=== PATIENT | male | born 1980 | race Caucasian/White ===

== ENCOUNTER 2017-03-28 11:32 | Emergency (ER) | payer BC, SELFPAY ==
[2017-03-28 11:54] VITALS: BP 139/88; PULSE 95; RESP 20; TEMP 37.4; O2SAT 96; BMI 33.9
--- NOTE | 2017-03-28 11:57 | HMH.EDUTC ---
[facility] [place] Disposition Clinical Impression: URI (upper respiratory infection) Qualifiers: URI type: unspecified URI Qualified Code(s): J06.9 - Acute upper respiratory infection, unspecified Disposition: Home, Self-Care Condition on Discharge: Good Instructions: Cough, Sinusitis (Alternative Therapy), DI for Sinusitis, DI for Cough -- Adult Additional Instructions: * Monitor Temp. Tylenol and/or Ibuprofen as needed. ER if fever is no less than 101 despite alternating Tylenol and Ibuprofen * Encourage fluids, water, Gatorade, powerade, pedialyte if /toddler/or child * Warm salt water gargles for throat irritation *Warm fluids *Sore throat lozenges *Sleep elevated *humidifier or vaporizer Lots of rest Increase fluids, water, Gatorade, powerade Follow up IMMEDIATELY for new or worsening of symptoms OR no noticeable improvement over the next 48-72 hours. 911 immediately for any life threatening symptoms such as chest pain or difficulty breathing Prescriptions: Azithromycin [Z-Craig 250mg Tab] 250 mg PO UD DOSE PK #6 tab predniSONE [Prednisone 20mg Tab] 20 mg PO BID #10 tab Promethazine/Dextromethorphan [Promethazine-Dm Syrup] 10 ml PO Q4H PRN #200 syrup PRN Reason: Cough Time of Disposition: 12:10 Medical Decision Making Vital Signs: 03/28/17 11:54 Temperature 99.3 F Temperature Source Temporal Artery Scan Pulse Rate [Brachial] 95 H Respiratory Rate 20 Blood Pressure [Left Arm] 139/88 Blood Pressure Mean [Left Arm] 105 Blood Pressure Source [Left Arm] Automatic Cuff Blood Pressure Position [Left Arm] Sitting 02 Sat by Pulse Oximetry 96 Oxygen Delivery Method Room Air - Petr Inquiry Pt receiving controlled substance: No Petr was queried for this patient: No [facility] [place] HPI - General Stated complaint: cough Mode of Arrival: Ambulatory Source of Information: Patient Limitations: No Limitations Description of Symptoms (Recalled from Triage Doc. by RN): COUGH, CONGESTION AND FEVER HEENT Symptoms (Recalled from RN notes): Yes Resp Symptoms (Recalled from RN notes): Yes Skin Symptoms (Recalled from RN notes): No MS Symptoms (Recalled from RN notes): No Functional Status (Recalled from RN notes): NA - History of Present Illness Provider Complaint: Patient state that he began having a cough on Saturday State that yesterday he noticed that he felt like his sinuses was starting to stop up State that he feels like he may be having some sinus drainage. State that today he has been feeling like he may be running a low grade fever - Related Data Previous Rx's Medication Instructions Recorded Azithromycin [Z-Craig 250mg Tab] 250 mg PO UD DOSE PK #6 tab 03/28/17 Promethazine/Dextromethorphan 10 ml PO Q4H PRN #200 syrup 03/28/17 [Promethazine-Dm Syrup] predniSONE [Prednisone 20mg 20 mg PO BID #10 tab 03/28/17 Tab] Allergies Allergy/AdvReac Type Severity Reaction Status Date / Time No Known Allergies Allergy Verified 03/28/17 11:57 - Worker's Comp Is this a Worker's Comp case?: No [facility] History I have reviewed the patient's past medical history: Yes Medical History: Denies:: Cancer, Diabetes Mellitus Type 1, Diabetes Mellitus Type 2, MRSA Amputation: No - *Social History Smoking Status: Never smoker Alcohol Intake: never - Psychiatric History Expresses thoughts of harming self/others: None Suicide Plan Description: No Plan ROS Obtained: Yes All systems reviewed & no additional complaints - Constitutional Constitutional: Reports fever(s) - ENT Ears, Nose, Mouth, and Throat: Reports sinus pressure Physical Exam - General General appearance: alert, in no apparent distress - Expanded ENT Exam Nose exam: Present: sinus tenderness, other (tenderness noted in maxillary sinuses, reports thick yellowish mucous) - Respiratory Respiratory exam: Present: normal lung sounds bilaterally. Absent: respiratory distress - Cardiovascular Cardiovascular exam: Present: regular rate
--- NOTE | 2017-03-28 12:01 | ED_ITS ---
[facility] [place] Disposition Clinical Impression: URI (upper respiratory infection) Qualifiers: URI type: unspecified URI Qualified Code(s): J06.9 - Acute upper respiratory infection, unspecified Disposition: Home, Self-Care Condition on Discharge: Good Instructions: Cough, Sinusitis (Alternative Therapy), DI for Sinusitis, DI for Cough -- Adult Additional Instructions: * Monitor Temp. Tylenol and/or Ibuprofen as needed. ER if fever is no less than 101 despite alternating Tylenol and Ibuprofen * Encourage fluids, water, Gatorade, powerade, pedialyte if /toddler/or child * Warm salt water gargles for throat irritation *Warm fluids *Sore throat lozenges *Sleep elevated *humidifier or vaporizer Lots of rest Increase fluids, water, Gatorade, powerade Follow up IMMEDIATELY for new or worsening of symptoms OR no noticeable improvement over the next 48-72 hours. 911 immediately for any life threatening symptoms such as chest pain or difficulty breathing Prescriptions: Azithromycin [Z-Craig 250mg Tab] 250 mg PO UD DOSE PK #6 tab predniSONE [Prednisone 20mg Tab] 20 mg PO BID #10 tab Promethazine/Dextromethorphan [Promethazine-Dm Syrup] 10 ml PO Q4H PRN #200 syrup PRN Reason: Cough Time of Disposition: 12:10 Medical Decision Making Vital Signs: 03/28/17 11:54 Temperature 99.3 F Temperature Source Temporal Artery Scan Pulse Rate [Brachial] 95 H Respiratory Rate 20 Blood Pressure [Left Arm] 139/88 Blood Pressure Mean [Left Arm] 105 Blood Pressure Source [Left Arm] Automatic Cuff Blood Pressure Position [Left Arm] Sitting 02 Sat by Pulse Oximetry 96 Oxygen Delivery Method Room Air - Petr Inquiry Pt receiving controlled substance: No Petr was queried for this patient: No [facility] [place] HPI - General Stated complaint: cough Mode of Arrival: Ambulatory Source of Information: Patient Limitations: No Limitations Description of Symptoms (Recalled from Triage Doc. by RN): COUGH, CONGESTION AND FEVER HEENT Symptoms (Recalled from RN notes): Yes Resp Symptoms (Recalled from RN notes): Yes Skin Symptoms (Recalled from RN notes): No MS Symptoms (Recalled from RN notes): No Functional Status (Recalled from RN notes): NA - History of Present Illness Provider Complaint: Patient state that he began having a cough on Saturday State that yesterday he noticed that he felt like his sinuses was starting to stop up State that he feels like he may be having some sinus drainage. State that today he has been feeling like he may be running a low grade fever - Related Data Previous Rx's Medication Instructions Recorded Azithromycin [Z-Craig 250mg Tab] 250 mg PO UD DOSE PK #6 tab 03/28/17 Promethazine/Dextromethorphan 10 ml PO Q4H PRN #200 syrup 03/28/17 [Promethazine-Dm Syrup] predniSONE [Prednisone 20mg 20 mg PO BID #10 tab 03/28/17 Tab] Allergies Allergy/AdvReac Type Severity Reaction Status Date / Time No Known Allergies Allergy Verified 03/28/17 11:57 - Worker's Comp Is this a Worker's Comp case?: No [facility] History I have reviewed the patient's past medical history: Yes Medical History: Denies:: Cancer, Diabetes Mellitus Type 1, Diabetes Mellitus Type 2, MRSA Amputation: No - *Social History Smoking Status: Never smoker Alcohol Intake: never - Psychiatric History Expresses thoughts of harming self
[2017-03-28 12:09] LABS: UTC Influenza A Antigen Negative (Negative); UTC Influenza B Antigen Negative (Negative)
== END 2017-03-28 12:17 | disposition home or self-care (01) ==
PROVIDERS: Emergency Provider Nurse Practitioner
DX: J06.9 Acute upper respiratory infection, unspecified (principal)
CPT/HCPCS: 87804; 99202

== ENCOUNTER 2017-04-01 09:31 | Emergency (ER) | payer BC, SELFPAY ==
[2017-04-01 09:40] VITALS: BP 114/81; PULSE 102; RESP 20; TEMP 36.8; O2SAT 96; BMI 35.5
--- NOTE | 2017-04-01 09:45 | HMH.EDUTC ---
[facility] [place] Dis[place] Clinical Impression: Influenza Disposition: Home, Self-Care Condition on Discharge: Good Instructions: Influenza, DI for Fever (Symptom) -- Adult, Cough Additional Instructions: ? Start Tamiflu today if you are going to take it. Discussed risk and possible benefits. ? Lots of rest ? Increase Fluids water, Gatorade, powerade, pedialyte,if infant/toddler/child ? Alternate Tylenol and / or ibuprofen as discussed for fever, aches, chills x 24 hours without medication for symptoms ? Follow up IMMEDIATELY for new or worsening Symptoms OR no noticeable improvement over the next 48-72 hours, 911 for difficulty or breathing ? You or your child area contagious until no fever, aches, chills for 24 hours with medication for symptoms * Monitor Temp. Tylenol and/or Ibuprofen as needed. ER if fever is no less than 101 despite alternating Tylenol and Ibuprofen * Encourage fluids, water, Gatorade, powerade, pedialyte if /toddler/or child * Warm salt water gargles for throat irritation *Warm fluids *Sore throat lozenges *Sleep elevated *humidifier or vaporizer Lots of rest Increase fluids, water, Gatorade, powerade Follow up with family doctor Prescriptions: Brompheniramine/Pseudoephed/Dm [Bromfed DM Cough Syrup 5mL] 10 ml PO Q4H PRN #200 syrup PRN Reason: Cough Oseltamivir Phosphate [Tamiflu 75mg Capsule] 75 mg PO BID #10 capsule Forms: Work/School Release Time of Disposition: 10:04 Medical Decision Making - Medical Records Medical records reviewed: Yes: I reviewed the patient's medical records. Vital Signs: 04/01/17 09:40 Temperature 98.3 F Temperature Source Temporal Artery Scan Pulse Rate [Right Radial] 102 H Respiratory Rate 20 Blood Pressure [Right Arm] 114/81 Blood Pressure Mean [Right Arm] 92 Blood Pressure Source [Right Arm] Automatic Cuff Blood Pressure Position [Right Arm] Sitting 02 Sat by Pulse Oximetry 96 Oxygen Delivery Method Room Air Orders (Tests/Meds): ORDERS Category Date Time Status Chest XR 2 view (NOT portable) [XR chest 2V] Stat Exams 04/01/17 09:47 Ordered - Radiology Data #1 Image(s): Chest Image Reviewed: Yes I reviewed the patient's radiology image Preliminary Findings: No Infiltrates Seen - Petr Inquiry Pt receiving controlled substance: No Petr was queried for this patient: No [facility] [place] HPI - General Stated complaint: cough drainage wheezing Mode of Arrival: Family Vehicle Source of Information: Patient Limitations: No Limitations Description of Symptoms (Recalled from Triage Doc. by RN): LAST WEEK PT WAS SEEN FOR SINUS INFECTION WAS GIVEN Z-HUGO AND STEROIDS BUT IS STILL NOT BETTER. HEENT Symptoms (Recalled from RN notes): No Resp Symptoms (Recalled from RN notes): Yes (WHEEZING, COUGH) Skin Symptoms (Recalled from RN notes): No MS Symptoms (Recalled from RN notes): No Functional Status (Recalled from RN notes): NA - History of Present Illness Provider Complaint: Patient state that he was seen and treated last week and diagnosed with sinus infection and given a zpack and sterioids States that he has taken all his medication and he did get feeling better and now his symptoms return State that symptoms area worse State hta this throat is raw irritated and drainage States that last night he was wheezing a little bit and so he thought he better come in and get checked out again - Related Data Previous Rx's Medication Instructions Recorded Azithromycin [Z-Hugo 250mg Tab] 250 mg PO UD DOSE PK #6 tab 03/28/17 Promethazine/Dextromethorphan 10 ml PO Q4H PRN #200 syrup 03/28/17 [Promethazine-Dm Syrup] predniSONE [Prednisone 20mg 20 mg PO BID #10 tab 03/28/17 Tab] Brompheniramine/Pseudoephed/Dm 10 ml PO Q4H PRN #200 syrup 04/01/17 [Bromfed DM Cough Syrup 5mL] Oseltamivir Phosphate [Tamiflu 75 mg PO BID #10 cap 04/01/17 75mg Capsule] Allergies Allergy/AdvReac Type Severity Reaction Status Date / Time No Known Allergies Allerg
--- NOTE | 2017-04-01 09:47 | XR_ITS ---
XR chest 2V Ordering Physician: Becca Ochoa Patient Age: 36 years: Male HISTORY: ITS.REASON: cough congestion TECHNIQUE: PA and lateral chest were performed with no previous chest studies for comparison. The lungs appear slightly hyperexpanded on this study but with no focal pneumonia evident. Upper normal prominence of markings the medial left lung base but I believe these are within normal limits. No pneumothorax. No pleural effusion. Chest wall and T-spine appear intact. Heart is normal in size. The ana and mediastinal structures appear satisfactory.. IMPRESSION: Lungs clear with nothing definitely acute. No definitive or convincing focal pneumonia
--- NOTE | 2017-04-01 09:49 | ED_ITS ---
[facility] [place] Disposition Clinical Impression: Influenza Disposition: Home, Self-Care Condition on Discharge: Good Instructions: Influenza, DI for Fever (Symptom) -- Adult, Cough Additional Instructions: ? Start Tamiflu today if you are going to take it. Discussed risk and possible benefits. ? Lots of rest ? Increase Fluids water, Gatorade, powerade, pedialyte,if infant/toddler/child ? Alternate Tylenol and / or ibuprofen as discussed for fever, aches, chills x 24 hours without medication for symptoms ? Follow up IMMEDIATELY for new or worsening Symptoms OR no noticeable improvement over the next 48-72 hours, 911 for difficulty or breathing ? You or your child area contagious until no fever, aches, chills for 24 hours with medication for symptoms * Monitor Temp. Tylenol and/or Ibuprofen as needed. ER if fever is no less than 101 despite alternating Tylenol and Ibuprofen * Encourage fluids, water, Gatorade, powerade, pedialyte if /toddler/or child * Warm salt water gargles for throat irritation *Warm fluids *Sore throat lozenges *Sleep elevated *humidifier or vaporizer Lots of rest Increase fluids, water, Gatorade, powerade Follow up with family doctor Prescriptions: Brompheniramine/Pseudoephed/Dm [Bromfed DM Cough Syrup 5mL] 10 ml PO Q4H PRN # 200 syrup PRN Reason: Cough Oseltamivir Phosphate [Tamiflu 75mg Capsule] 75 mg PO BID #10 capsule Forms: Work/School Release Time of Disposition: 10:04 Medical Decision Making - Medical Records Medical records reviewed: Yes: I reviewed the patient's medical records. Vital Signs: 04/01/17 09:40 Temperature 98.3 F Temperature Source Temporal Artery Scan Pulse Rate [Right Radial] 102 H Respiratory Rate 20 Blood Pressure [Right Arm] 114/81 Blood Pressure Mean [Right Arm] 92 Blood Pressure Source [Right Arm] Automatic Cuff Blood Pressure Position [Right Arm] Sitting 02 Sat by Pulse Oximetry 96 Oxygen Delivery Method Room Air Orders (Tests/Meds): ORDERS Category Date Time Status Chest XR 2 view (NOT portable) [XR chest 2V] Stat Exams 04/01/17 09:47 Ordered - Radiology Data #1 Image(s): Chest Image Reviewed: Yes I reviewed the patient's radiology image Preliminary Findings: No Infiltrates Seen - Petr Inquiry Pt receiving controlled substance: No Petr was queried for this patient: No [facility] [place] HPI - General Stated complaint: cough drainage wheezing Mode of Arrival: Family Vehicle Source of Information: Patient Limitations: No Limitations Description of Symptoms (Recalled from Triage Doc. by RN): LAST WEEK PT WAS SEEN FOR SINUS INFECTION WAS GIVEN Z-HUGO AND STEROIDS BUT IS STILL NOT BETTER. HEENT Symptoms (Recalled from RN notes): No Resp Symptoms (Recalled from RN notes): Yes (WHEEZING, COUGH) Skin Symptoms (Recalled from RN notes): No MS Symptoms (Recalled from RN notes): No Functional Status (Recalled from RN notes): NA - History of Present Illness Provider Complaint: Patient state that he was seen and treated last week and diagnosed with sinus infection and given a zpack and sterioids States that he has taken all his medication and he did get feeling better and now his symptoms return State that symptoms area worse State hta this throat is raw irritated and drainage States that last night he was wheezing a little bit and so he thought he better come in and get checked out again - Related Data Previous Rx's
[2017-04-01 13:49] LABS: UTC Influenza A Antigen Negative (Negative); UTC Influenza B Antigen Negative (Negative)
== END 2017-04-01 10:08 | disposition home or self-care (01) ==
PROVIDERS: Emergency Provider Nurse Practitioner
DX: J11.1 Influenza due to unidentified influenza virus with other respiratory manifestations (principal)
CPT/HCPCS: 71046; 87804; 99203; 99281

== ENCOUNTER → 2018-09-22 12:27 | Outpatient (CLI) | payer BC, SELFPAY ==
--- NOTE | 2018-09-22 12:31 | XR_ITS ---
XR elbow RT min 3V HISTORY: Follow-up fracture ITS.REASON: rt radial head fx ORDERING PHYSICIAN: Juliet Hernandez MD PATIENT AGE: 38 years COMPARISON: 08/06/2018 FINDINGS: Nondisplaced radial head fracture once again noted. The fracture line is more dose being when compared to the previous exam. There is an associated avulsion fracture along the anterior aspect of the radial neck. There has been some improvement in the displaced fat pad inferiorly. IMPRESSION: Overall no significant change in the radial head and neck fracture nondisplaced
== END ==
PROVIDERS: Visit Provider Orthopaedic Surgery
DX: S52.124A Nondisplaced fracture of head of right radius, initial encounter for closed fracture (principal)
CPT/HCPCS: 73080

== ENCOUNTER → 2018-10-20 09:53 | Outpatient (CLI) | payer BC, SELFPAY ==
--- NOTE | 2018-10-20 10:02 | XR_ITS ---
XR elbow RT min 3V Ordering Physician: Juliet Hernandez MD Patient Age: 38 years: Male HISTORY: ITS.REASON: rt radial head fracture Follow-up radial head and neck fracture. TECHNIQUE: 3 views of right elbow COMPARISON : September 22, 2018 FINDINGS The fracture line radial head is less evident.-Fracture line less sharp suggesting some early healing.. There are some minor offset noted the margin this of the radial head at this fracture on today's images suggest is similar to slightly more pronounced than 08/06/2018 oblique view but I favor this is mainly be projectional. Warrants continued ongoing follow-up. . Again note the small chip fracture,, or small avulsed fracture fragment anteriorly to the radial neck.]. Slightly smaller which may reflect some resorption. The joint effusion less evident IMPRESSION: . Healing radial head fracture. Fracture line less sharp, less evident suggesting early healing. Very Minor offset at cortical margin of radial head fracture again seen.. Suspect today's view & projection slightly accentuates this feature
== END ==
PROVIDERS: Visit Provider Orthopaedic Surgery
DX: S52.123A Displaced fracture of head of unspecified radius, initial encounter for closed fracture (principal)
CPT/HCPCS: 73080

== ENCOUNTER → 2019-02-02 16:31 | Outpatient (CLI) | payer BC, SELFPAY ==
--- NOTE | 2019-02-02 | XR_ITS ---
PROCEDURE: XR CHEST 2V CLINICAL HISTORY: TB screening COMPARISON: CXR2V XR chest 2V from 04/01/2017 FINDINGS: The cardiomediastinal silhouette and pulmonary vascularity are within normal limits. The lungs are clear without infiltrates, suspicious nodules, or pleural effusions. No acute bony abnormalities. IMPRESSION: No acute finding. No evidence of active tuberculosis Dictated by: Ranjith Harman MD 02/02/2019 18:17 Electronically signed by Ranjith Harman MD in [place] 02/03/2019 11:30
[2019-02-02 17:31] LABS: Basophils # 0.1 K/mm3 (0-0.2); Basophils % 0.8 % (0.1-2.0); Eosinophils # 0.2 K/mm3 (0.0-0.4); Hematocrit 44.7 % (42.0-52.0); Hemoglobin 14.3 g/dL (14.1-18.0); Lymphocytes # 2.9 K/mm3 (0.7-4.5); Lymphocytes % 26.3 % (10-50); Mean Corpuscular HGB Conc 31.9 g/dL (31.8-35.4); Mean Corpuscular Hemoglobin 27.5 pg (27.0-31.2); Mean Platelet Volume 7.1 fl (7.4-10.4); Monocytes # 0.4 K/mm3 (0.1-1.0); Monocytes % 3.3 % (1.7-9.3); Neutrophils # 7.3 K/mm3 (1.8-7.8); Neutrophils % 67.6 % (37.0-80.0); Platelet Count 342 K/mm3 (142-424); Red Cell Distribution Width 14.2 % (11.5-17.5); White Blood Count 10.8 K/mm3 (4.8-10.8)
[2019-02-02 19:26] LABS: Blood Urea Nitrogen 12 mg/dL (7-18); Calcium 9.1 mg/dL (8.5-10.1); Carbon Dioxide 26 mmol/L (21.0-32.0); Chloride 101 mmol/L (98-107); Creatinine,Serum 1.09 mg/dL (0.70-1.30); Estimated Glomerular Filt Rate 75 ml/min (>60); GFR (African American) 91 ML/MIN (>60); Glucose 214 mg/dL (74-106); Sodium 138 mmol/L (136-145)
[2019-02-04 10:23] LABS: HSV 1 IgG, Type Spec 1.14 index (0.00-0.90); HSV 2 IgG, Type Spec <0.91 index (0.00-0.90); Rapid Plasma Reagin Ab Titer Non Reactive (NonRea<1:1); Toxoplasma gondii Ab,IgM,Qn <3.0 AU/mL (0.0-7.9)
[2019-02-05 06:11] LABS: Angiotensin Converting Enzyme 29 U/L (14-82); Treponema pallidum Ab (FTA-ABS Non Reactive (Non Reactive); Varicella Zoster IgG 809 index (Immune >165); Varicella-Zoster Ab, IgM <0.91 index (0.00-0.90)
[2019-02-05 11:21] LABS: CMV PCR Negative (Negative); QuantiFERON-TB Gold Plus Negative (Negative)
== END ==
PROVIDERS: Visit Provider Ophthalmology
DX: B58.01 Toxoplasma chorioretinitis (principal)
CPT/HCPCS: 36415; 71046; 80048; 82164; 85025; 86480; 86592; 86695; 86696; 86777; 86780; 86787; 86790; 87496

== ENCOUNTER 2020-04-29 09:17 | Emergency (ER) | payer OTHER, SELFPAY ==
[2020-04-29 09:26] VITALS: BP 156/88; PULSE 92; RESP 16; TEMP 36.9; O2SAT 96; BMI 33.6
[2020-04-29 09:43] VITALS: BP 156/88; PULSE 92; RESP 16; TEMP 36.9
--- NOTE | 2020-04-29 09:46 | HMH.EDUTC ---
[facility] [place] Disposition Clinical Impression: Encounter for laboratory testing for COVID-19 virus Disposition: Home, Self-Care Condition on Discharge: Good Instructions: DI for COVID-19 (Suspected or Confirmed ), Coronavirus Disease 2019, Preventing the Spread of Coronavirus Discharge Instructions Additional Instructions: *Monitor Temp, Over the counter Motrin or Tylenol as directed/as needed Tylenol every 4 hours and Motrin every 6 hours (as long as your family doctor has told you that you can take it) for fever or pain. and straight to ER if unable to lower temp less than 101.0 after medication given Follow up IMMEDIATELY for new or worsening symptoms or no Noticeable improvement over the next 48-72 hours. 911 for difficulty breathing or swallowing You were tested for today for COVID19 your test result should be back in the next 24-48 hours, you may call to the [facility] to see if your test results are back in the next 48 hours [phone] [facility] hours are 9am-9pm You was given a handout with instructions for Self Quarantine and Self isolation for while you wait on test results and what to do if they are positive If you are positive the Health Dept will be contacting you also Referrals: PCP,No [Primary Care Provider] - As needed Forms: Work/School Release Time of Disposition: 09:49 Medical Decision Making - Petr Inquiry Pt receiving controlled substance: No Petr was queried for this patient: No Vital Signs: 04/29/20 09:26 04/29/20 09:43 Temperature 98.4 F 98.4 F Temperature Source Oral Oral Pulse Rate 92 H Pulse Rate [Right] 92 H Respiratory Rate 16 16 Blood Pressure 156/88 H Blood Pressure [Right Arm] 156/88 H Blood Pressure Mean [Right Arm] 110 Blood Pressure Source [Right Arm] Automatic Cuff Blood Pressure Position [Right Arm] Sitting 02 Sat by Pulse Oximetry 96 Oxygen Delivery Method Room Air Orders (Tests/Meds): ORDERS Category Date Time Status Covid-19 Nasal PCR ([facility]) Routine Lab 04/29/20 09:23 Received [facility] [place] HPI - General Stated complaint: covid test Time Seen by Provider: 04/29/20 09:46 Mode of Arrival: Ambulatory Source of Information: Patient Limitations: No Limitations Description of Symptoms (Recalled from Triage Doc. by RN): pt is asymptomatic. however, he was directly exposed to his who is covid positive. HEENT Symptoms (Recalled from RN notes): No Resp Symptoms (Recalled from RN notes): No Skin Symptoms (Recalled from RN notes): No MS Symptoms (Recalled from RN notes): No Functional Status (Recalled from RN notes): na - History of Present Illness Provider Complaint: Patient state that his tested positive for COVID last week States that he has not been having any symptoms but his work wanted him to get tested before he can come back - Related Data Home Medications Medication Instructions Recorded Confirmed No Known Home Medications 09/22/18 10/20/18 Allergies Allergy/AdvReac Type Severity Reaction Status Date / Time No Known Allergies Allergy Verified 04/29/20 09:25 - Worker's Comp Is this a Worker's Comp case?: No [facility] History - Hepatitis A Screen Drug use history?: No High risk sexual behaviors?: No History of sexually transmitted infection?: No Currently employed?: No Childcare worker?: No Do you have indoor plumbing?: Yes Do you have electricity?: Yes Attestation statement:: This patient has been screened for Hepatitis A risk factors. I have reviewed the patient's past medical history: Yes Medical History: Denies:: Cancer, Diabetes Mellitus Type 1, Diabetes Mellitus Type 2, Hypertension, MRSA Other Surgeries: Yes: No Previous Surgery Amputation: No - Social History Smoking Status: Unknown if ever smoked Alcohol Intake: never Occupational Status: employed Housing: house Family Hx:: No significant family history ROS Obtained: Yes All systems reviewed & no additional complaints, Yes Systems reviewed as appropriate & no additi
== END 2020-04-29 09:54 | disposition home or self-care (01) ==
PROVIDERS: Emergency Provider Nurse Practitioner
DX: Z20.822 Contact with and (suspected) exposure to COVID-19 (principal)
CPT/HCPCS: 99202; G0463; U0003

== ENCOUNTER 2020-05-06 13:28 | Emergency (ER) | payer OTHER, SELFPAY ==
[2020-05-06 13:30] VITALS: BP 125/86; PULSE 97; RESP 18; TEMP 36.4; O2SAT 95; BMI 31.3
--- NOTE | 2020-05-06 13:59 | HMH.EDUTC ---
[facility] [place] Clinical Impression: Exposure to COVID-19 virus Disposition: Home, Self-Care Condition on Discharge: Good Instructions: Preventing the Spread of Coronavirus Discharge Instructions Referrals: PCP,Thu [Primary Care Provider] - Time of Disposition: 14:00 Medical Decision Making - Petr Inquiry Pt receiving controlled substance: No Vital Signs: 05/06/20 13:30 Temperature 97.6 F Temperature Source Oral Pulse Rate [Right Brachial] 97 H Respiratory Rate 18 Blood Pressure [Right Arm] 125/86 Blood Pressure Mean [Right Arm] 99 Blood Pressure Source [Right Arm] Automatic Cuff Blood Pressure Position [Right Arm] Sitting 02 Sat by Pulse Oximetry 95 Oxygen Delivery Method Room Air [facility] [place] - General Stated complaint: covid test Time Seen by Provider: 05/06/20 13:59 Mode of Arrival: Ambulatory Source of Information: Patient Limitations: No Limitations Description of Symptoms (Recalled from Triage Doc. by RN): PATIENT'S TESTED POSITIVE FOR COVID AND HE IS NEEDING A NEGATIVE TEST TO RETURN TO WORK. DENIES SYMPTOMS HEENT Symptoms (Recalled from RN notes): No Resp Symptoms (Recalled from RN notes): No Skin Symptoms (Recalled from RN notes): No MS Symptoms (Recalled from RN notes): No Functional Status (Recalled from RN notes): WNL - History of Present Illness Provider Complaint: Patient's testing positive for COVID 2/3. Needs negative test to return to work. Denies symptoms. Relieving factors: none Exacerbating factors: none Associated symptoms: denies other symptoms Treatments prior to arrival: none - Related Data Home Medications Medication Instructions Recorded Confirmed No Known Home Medications 09/22/18 10/20/18 Allergies Allergy/AdvReac Type Severity Reaction Status Date / Time No Known Allergies Allergy Verified 04/29/20 09:25 - Worker's Comp Is this a Worker's Comp case?: No [facility] History - Hepatitis A Screen Drug use history?: No High risk sexual behaviors?: No History of sexually transmitted infection?: No Currently employed?: No Childcare worker?: No Do you have indoor plumbing?: Yes Do you have electricity?: Yes Attestation statement:: This patient has been screened for Hepatitis A risk factors. I have reviewed the patient's past medical history: Yes Medical History: Denies:: Cancer, Diabetes Mellitus Type 1, Diabetes Mellitus Type 2, Hypertension, MRSA Other Surgeries: Yes: No Previous Surgery Amputation: No - Social History Smoking Status: Unknown if ever smoked Alcohol Intake: never Occupational Status: employed Housing: house Family Hx:: No significant family history ROS Obtained: Yes All systems reviewed & no additional complaints Physical Exam - General General appearance: alert, in no apparent distress - Head Head exam: normocephalic - Eye Eye exam: Present: PERRL - ENT ENT exam: Present: normal oropharynx - Respiratory Respiratory exam: Present: normal lung sounds bilaterally - Cardiovascular Cardiovascular exam: Present: regular rate, normal rhythm - Neurological Exam Neurological exam: Present: alert, oriented X3 - Psychiatric Psychiatric exam: Present: normal affect, normal mood - Skin Skin exam: Present: warm, dry, intact
[2020-05-06 14:03] VITALS: BP 125/86; PULSE 97; RESP 18; TEMP 36.4; O2SAT 95
== END 2020-05-06 14:06 | disposition home or self-care (01) ==
PROVIDERS: Emergency Provider Physician Assistant
DX: Z20.822 Contact with and (suspected) exposure to COVID-19 (principal)
CPT/HCPCS: 99202; G0463; U0003

== ENCOUNTER 2020-05-23 17:00 | Emergency (ER) | payer OTHER, SELFPAY ==
[2020-05-23 17:22] VITALS: BP 118/76; PULSE 81; RESP 17; TEMP 36.6; O2SAT 99; BMI 36.0
--- NOTE | 2020-05-23 17:27 | HMH.EDUTC ---
[facility] [place]ression: Exposure to COVID-19 virus Disposition: Home, Self-Care Condition on Discharge: Good Instructions: Preventing the Spread of Coronavirus Discharge Instructions Additional Instructions: Drink plenty of fluids. Take tylenol for pain or fever. Return if you begin to have difficulty breathing. Follow up with your regular doctor. GO TO THE ER FOR ANY WORSENING SYMPTOMS Referrals: PCP,No [Primary Care Provider] - Time of Disposition: 17:30 Medical Decision Making - Medical Records Medical records reviewed: No: I reviewed the patient's medical records. - Petr Inquiry Pt receiving controlled substance: No Vital Signs: 05/23/20 17:22 05/23/20 17:32 Temperature 97.8 F 98 F Temperature Source Tympanic Pulse Rate 86 Pulse Rate [Right] 81 Respiratory Rate 17 14 Blood Pressure 000/00 L Blood Pressure [Right Arm] 118/76 Blood Pressure Mean [Right Arm] 90 Blood Pressure Source [Right Arm] Automatic Cuff Blood Pressure Position [Right Arm] Sitting 02 Sat by Pulse Oximetry 99 Oxygen Delivery Method Room Air [facility] [place] - General Stated complaint: covid test Time Seen by Provider: 05/23/20 17:27 Mode of Arrival: Ambulatory Source of Information: Patient Limitations: No Limitations Description of Symptoms (Recalled from Triage Doc. by RN): PT NEEDS A COVID TEST FOR HIS CATARACT SURGERY ON SATURDAY. HEENT Symptoms (Recalled from RN notes): No Resp Symptoms (Recalled from RN notes): No Skin Symptoms (Recalled from RN notes): No MS Symptoms (Recalled from RN notes): No Functional Status (Recalled from RN notes): NA - History of Present Illness Provider Complaint: He has cataract surgery scheduled for later this week. He needs a covid test done before he can have the surgery. - Related Data Home Medications Medication Instructions Recorded Confirmed No Known Home Medications 09/22/18 10/20/18 Allergies Allergy/AdvReac Type Severity Reaction Status Date / Time No Known Allergies Allergy Verified 04/29/20 09:25 - Worker's Comp Is this a Worker's Comp case?: No [facility] History - Hepatitis A Screen Drug use history?: No High risk sexual behaviors?: No History of sexually transmitted infection?: No Currently employed?: No Childcare worker?: No Do you have indoor plumbing?: Yes Do you have electricity?: Yes Attestation statement:: This patient has been screened for Hepatitis A risk factors. I have reviewed the patient's past medical history: Yes Medical History: Denies:: Cancer, Diabetes Mellitus Type 1, Diabetes Mellitus Type 2, Hypertension, MRSA Other Surgeries: Yes: No Previous Surgery Amputation: No - Social History Smoking Status: Unknown if ever smoked Alcohol Intake: never Occupational Status: employed Housing: house Family Hx:: No significant family history ROS Obtained: Yes All systems reviewed & no additional complaints - Constitutional Constitutional: Reports system reviewed and no additional complaints, except as docu - Eyes Eyes: Reports system reviewed and no additional complaints, except as docu - ENT Ears, Nose, Mouth, and Throat: Reports system reviewed and no additional complaints, except as docu - Cardiovascular Cardiovascular: Reports system reviewed and no additional complaints, except as docu - Respiratory Respiratory: Reports system reviewed and no additional complaints, except as docu - Gastrointestinal Gastrointestingal: Reports: system reviewed and no additional complaints, except as docu Physical Exam - General General appearance: alert, in no apparent distress - Head Head exam: atraumatic, normocephalic, normal inspection - Eye Eye exam: Present: normal appearance, PERRL, EOMI - ENT ENT exam: Present: normal exam, normal oropharynx, mucous membranes moist, TM's normal bilaterally, normal external ear exam - Neck Neck exam: Present: normal inspection, full ROM, trachea mi
[2020-05-23 17:32] VITALS: BP 000/00; PULSE 86; RESP 14; TEMP 36.6
== END 2020-05-23 17:32 | disposition home or self-care (01) ==
PROVIDERS: Emergency Provider Nurse Practitioner Family
DX: Z11.52 Encounter for screening for COVID-19 (principal)
CPT/HCPCS: 99202; G0463; U0003

== ENCOUNTER 2020-07-19 15:39 | Emergency (ER) | payer OTHER, SELFPAY ==
[2020-07-19 16:25] VITALS: BP 136/82; PULSE 84; RESP 18; TEMP 36.9; O2SAT 98; BMI 32.8
--- NOTE | 2020-07-19 16:34 | HMH.EDUTC ---
[facility] [place]ression: Exposure to COVID-19 virus Disposition: Home, Self-Care Condition on Discharge: Good Instructions: Preventing the Spread of Coronavirus Discharge Instructions Additional Instructions: Drink plenty of fluids. Take tylenol for pain or fever. Return if you begin to have difficulty breathing. Follow up with your regular doctor. GO TO THE ER FOR ANY WORSENING SYMPTOMS Referrals: Provider,Referral, MD [Primary Care Provider] - Forms: Work/School Release Time of Disposition: 16:43 Medical Decision Making - Medical Records Medical records reviewed: No: I reviewed the patient's medical records. - Petr Inquiry Pt receiving controlled substance: No Vital Signs: 07/19/20 16:25 07/19/20 16:47 Temperature 98.4 F 98.4 F Temperature Source Oral Pulse Rate 84 Pulse Rate [Right Brachial] 84 Respiratory Rate 18 18 Blood Pressure 136/82 Blood Pressure [Right Arm] 136/82 Blood Pressure Mean [Right Arm] 100 Blood Pressure Source [Right Arm] Automatic Cuff Blood Pressure Position [Right Arm] Sitting 02 Sat by Pulse Oximetry 98 Oxygen Delivery Method Room Air [facility] [place] - General Stated complaint: COVID test Time Seen by Provider: 07/19/20 16:34 - History of Present Illness Provider Complaint: He states that he was exposed to covid last week. He denies any symptoms, but his employer wanted him to get tested. - Related Data Home Medications Medication Instructions Recorded Confirmed No Known Home Medications 09/22/18 10/20/18 Allergies Allergy/AdvReac Type Severity Reaction Status Date / Time No Known Allergies Allergy Verified 04/29/20 09:25 [facility] History - Hepatitis A Screen Attestation statement:: This patient has been screened for Hepatitis A risk factors. I have reviewed the patient's past medical history: Yes Medical History: Denies:: Cancer, Diabetes Mellitus Type 1, Diabetes Mellitus Type 2, Hypertension, MRSA Other Surgeries: Yes: No Previous Surgery Amputation: No - Social History Smoking Status: Unknown if ever smoked Alcohol Intake: never Occupational Status: employed Housing: house Family Hx:: No significant family history ROS Obtained: Yes All systems reviewed & no additional complaints - Constitutional Constitutional: Reports system reviewed and no additional complaints, except as docu - Eyes Eyes: Reports system reviewed and no additional complaints, except as docu - ENT Ears, Nose, Mouth, and Throat: Reports system reviewed and no additional complaints, except as docu - Cardiovascular Cardiovascular: Reports system reviewed and no additional complaints, except as docu - Respiratory Respiratory: Reports system reviewed and no additional complaints, except as docu Physical Exam - General General appearance: alert, in no apparent distress - Head Head exam: atraumatic, normocephalic, normal inspection - Eye Eye exam: Present: normal appearance, PERRL, EOMI - ENT ENT exam: Present: normal exam, normal oropharynx, mucous membranes moist, TM's normal bilaterally, normal external ear exam - Neck Neck exam: Present: normal inspection, full ROM, trachea midline. Absent: meningismus, lymphadenopathy - Chest Chest inspection: Present: normal inspection, symmetric chest wall rise. Absent: tenderness - Respiratory Respiratory exam: Present: normal lung sounds bilaterally. Absent: respiratory distress - Cardiovascular Cardiovascular exam: Present: regular rate, normal rhythm. Absent: JVD - Abdominal Exam Abdominal exam: Present: soft, normal bowel sounds. Absent: distention, tenderness, guarding - Extremities Exam Extremities exam: Present: normal inspection, full ROM, normal capillary refill. Absent: calf tenderness - Back Exam Back exam: Present: normal inspection. Absent: tenderness - Neurological Exam Neurological exam: Present: alert, oriented X3 - Psychiatric Psyc
[2020-07-19 16:47] VITALS: BP 136/82; PULSE 84; RESP 18; TEMP 36.9; O2SAT 98
== END 2020-07-19 16:50 | disposition home or self-care (01) ==
PROVIDERS: Emergency Provider Nurse Practitioner Family
DX: Z20.822 Contact with and (suspected) exposure to COVID-19 (principal)
CPT/HCPCS: 99202; G0463; U0003

== ENCOUNTER → 2021-03-17 11:00 | Outpatient (CLI) | payer OTHER, SELFPAY | PROVIDERS: Visit Provider Nurse Practitioner Family | DX: Z20.822 Contact with and (suspected) exposure to COVID-19 (principal) | CPT/HCPCS: C9803; U0003; U0005 ==

== ENCOUNTER 2021-06-28 16:50 | Emergency (ER) | payer OTHER, SELFPAY ==
[2021-06-28 17:11] VITALS: BP 150/94; PULSE 98; RESP 16; TEMP 37.2; O2SAT 96; BMI 32.8
[2021-06-28 17:31] LABS: Strep Scrn Group A (Rapid) Negative (Negative)
--- NOTE | 2021-06-28 18:22 | HMH.EDUTC ---
[facility] – [place] Disposition Clinical Impression: Viral syndrome Pharyngitis Qualifiers: Pharyngitis/tonsillitis etiology: unspecified etiology Qualified Code(s): J02.9 - Acute pharyngitis, unspecified Disposition: Home, Self-Care Condition on Discharge: Good Instructions: DI for Strep Throat, DI for Viral Syndrome Additional Instructions: Drink plenty of fluids. Take tylenol or ibuprofen for pain or fever. Take the medications as directed. Follow up with your regular doctor. GO TO THE ER FOR ANY WORSENING SYMPTOMS Prescriptions: Ondansetron [Zofran 4mg ODT] 4 mg PO Q8HP PRN #20 tab PRN Reason: Nausea Transmission Status: Pending to [id number] Azithromycin [Z-Craig 250mg Tab*] 250 mg PO UD DOSE PK #6 tab Transmission Status: Pending to [id number] Referrals: Provider,Referral, MD [Primary Care Provider] - Forms: Work/School Release Time of Disposition: 18:24 Medical Decision Making - Medical Records Medical records reviewed: No: I reviewed the patient's medical records. - Petr Inquiry Pt receiving controlled substance: No Vital Signs: 06/28/21 17:11 Temperature 98.9 F Temperature Source Oral Pulse Rate [Left] 98 H Respiratory Rate 16 Blood Pressure [Right Arm] 150/94 H Blood Pressure Mean [Right Arm] 112 02 Sat by Pulse Oximetry 96 - Lab Data Lab results reviewed: Yes: I reviewed the patient's lab results. Lab Results 06/28/21 17:08: Group A Strep Rapid Negative Orders (Tests/Meds): ORDERS Category Date Time Status Covid-19 Nasal PCR ([facility]) Routine Lab 06/28/21 17:08 Received Strep Screen Confirmation Stat Micro 06/28/21 17:08 Received [facility] [place] HPI - General Stated complaint: covid test, cough congestion Time Seen by Provider: 06/28/21 18:22 Mode of Arrival: Ambulatory Source of Information: Patient Limitations: No Limitations Description of Symptoms (Recalled from Triage Doc. by RN): pt c/o cough and congestion. HEENT Symptoms (Recalled from RN notes): Yes Resp Symptoms (Recalled from RN notes): Yes Skin Symptoms (Recalled from RN notes): No MS Symptoms (Recalled from RN notes): No Functional Status (Recalled from RN notes): wnl - History of Present Illness Provider Complaint: He states that he has had a sore throat, cough, body aches and chills for the past 2 days. - Related Data Previous Rx's Medication Instructions Recorded Azithromycin [Z-Craig 250mg Tab*] 250 mg PO UD DOSE PK #6 tab 06/28/21 Ondansetron [Zofran 4mg ODT] 4 mg PO Q8HP PRN #20 tab 06/28/21 Allergies Allergy/AdvReac Type Severity Reaction Status Date / Time No Known Allergies Allergy Verified 04/29/20 09:25 - Worker's Comp Is this a Worker's Comp case?: No [facility] History - Hepatitis A Screen Drug use history?: No High risk sexual behaviors?: No History of sexually transmitted infection?: No Currently employed?: No Childcare worker?: No Do you have indoor plumbing?: Yes Do you have electricity?: Yes Attestation statement:: This patient has been screened for Hepatitis A risk factors. I have reviewed the patient's past medical history: Yes Medical History: Denies:: Cancer, Diabetes Mellitus Type 1, Diabetes Mellitus Type 2, Hypertension, MRSA Other Surgeries: Yes: No Previous Surgery Amputation: No - Social History Smoking Status: Unknown if ever smoked Alcohol Intake: never Occupational Status: employed Housing: house Family Hx:: No significant family history ROS Obtained: Yes All systems reviewed & no additional complaints - Constitutional Constitutional: Reports as per HPI - Eyes Eyes: Denies eye discharge - ENT Ears, Nose, Mouth, and Throat: Reports as per HPI - Cardiovascular Cardiovascular: Denies chest pain - Respiratory Respiratory: Denies chest congestion, Reports cough Physical Exam - General General appearance: alert, in no apparent distress - Head Head exam: atraumatic, normocephalic, normal inspecti
[2021-06-28 18:38] VITALS: BP 150/94; PULSE 98; RESP 16; TEMP 37.2
== END 2021-06-28 18:40 | disposition home or self-care (01) ==
PROVIDERS: Emergency Provider Nurse Practitioner Family
DX: J02.9 Acute pharyngitis, unspecified (principal); B34.9 Viral infection, unspecified
CPT/HCPCS: 87430; 99212; C9803; G0463; U0003; U0005